=== PATIENT | male | born 1985 | race Two or more races ===

== ENCOUNTER 2021-05-30 13:05 | Emergency (ER) | payer OTHER ==
[~2021-05-30] VITALS: Ht 167.6 cm; Wt 140.0 kg
[2021-05-30 13:48] VITALS: BP 149/104
== END 2021-05-30 19:14 | disposition left against medical advice (07) ==
LOC: ER 13:06
DX: S81.802A Unspecified open wound, left lower leg, initial encounter (principal); Z53.21 Procedure and treatment not carried out due to patient leaving prior to being seen by health care provider; X58.XXXA Exposure to other specified factors, initial encounter; Y93.9 Activity, unspecified; Y92.9 Unspecified place or not applicable; Y99.9 Unspecified external cause status